=== PATIENT | male | born 2005 | race Caucasian/White ===

== ENCOUNTER 2023-07-29 01:38 | Inpatient (IN) | payer BC, OTHER ==
[2023-07-29] MEDS ORDERED: Acetaminophen 500 MG TAB ONE (02:03)
[2023-07-29] MEDS ORDERED: Morphine 4 MG/ML VIAL ONE (02:03)
[2023-07-29] MEDS ORDERED: Ondansetron PF 4 MG/2 ML Vial ONE (02:04)
[2023-07-29 02:20] LABS: #Basophils 0.1 thou/uL (0.0-0.2); #Monocytes 1.5 thou/uL (0.11-0.59); #Neutrophils 17.1 thou/uL (1.40-6.50); %Basophils 0.2 % (0.0-1.0); %Eosinophils 0.2 % (0.0-10.0); %Lymphocytes 8.2 % (28.0-48.0); %Monocytes 7.3 % (0.0-4.0); %Neutrophils 83.7 % (31.0-61.0); Hematocrit 41.1 % (42.0-52.0); Hemoglobin 14.1 g/dL (14.0-18.0); Mean Corpuscular HGB CONC 34.3 g/dL (32.0-36.0); Mean Corpuscular Hemoglobin 29.1 pg (25.0-35.0); Mean Corpuscular Volume 84.9 fl (78.0-98.0); Mean Platelet Volume 11.1 fL (7.4-10.4); Platelet Count 206 10x3/uL (130-400); RBC Distribution Width 13.4 % (11.5-14.5); Red Blood Cell (RBC) Count 4.84 mill/uL (4.00-5.20); White Blood Cell (WBC) Count 20.4 10x3/uL (4.8-10.8)
[2023-07-29 02:42] LABS: ALT (SGPT) 19 U/L (8-55); AST (SGOT) 31 U/L (5-34); Albumin 4.3 g/dL (3.5-5.0); Alkaline Phosphatase 49 U/L (50-130); Anion Gap 13 mmol/L (10-20); BUN (Urea Nitrogen) 13 mg/dL (8.9-20.6); Bilirubin, Total 0.4 mg/dL (0.2-1.2); CK (CPK) 904 U/L (30-200); Calc. Creatinine Clearance 0 mL/min (70-130); Calcium 9.3 mg/dL (7.8-10.44); Carbon Dioxide 23 mmol/L (22-29); Chloride 103 mmol/L (98-107); Estimated GFR 124; Globulin 2.7 g/dL (2.4-3.5); Glucose 152 mg/dL (70-105); Potassium 3.4 mmol/L (3.5-5.1); Sodium 136 mmol/L (136-145)
[2023-07-29 05:21] LABS: Lactic Acid 0.8 mmol/L (0.5-2.2)
[2023-07-29 07:25] LABS: #Monocytes 1.3 thou/uL (0.11-0.59); #Neutrophils 8.1 thou/uL (1.40-6.50); %Basophils 0.2 % (0.0-1.0); %Eosinophils 0.1 % (0.0-10.0); %Lymphocytes 12.2 % (28.0-48.0); %Neutrophils 75.2 % (31.0-61.0); Hematocrit 38.3 % (42.0-52.0); Hemoglobin 12.9 g/dL (14.0-18.0); Mean Corpuscular HGB CONC 33.7 g/dL (32.0-36.0); Mean Corpuscular Hemoglobin 28.7 pg (25.0-35.0); Mean Corpuscular Volume 85.3 fl (78.0-98.0); Mean Platelet Volume 11.1 fL (7.4-10.4); Platelet Count 190 10x3/uL (130-400); RBC Distribution Width 13.4 % (11.5-14.5); Red Blood Cell (RBC) Count 4.49 mill/uL (4.00-5.20); White Blood Cell (WBC) Count 10.7 10x3/uL (4.8-10.8)
[2023-07-29 07:52] LABS: ALT (SGPT) 19 U/L (8-55); AST (SGOT) 55 U/L (5-34); Albumin 4.2 g/dL (3.5-5.0); Alkaline Phosphatase 48 U/L (50-130); Anion Gap 10 mmol/L (10-20); BUN (Urea Nitrogen) 11 mg/dL (8.9-20.6); Bilirubin, Total 0.6 mg/dL (0.2-1.2); Calc. Creatinine Clearance 0 mL/min (70-130); Calcium 8.9 mg/dL (7.8-10.44); Carbon Dioxide 25 mmol/L (22-29); Chloride 106 mmol/L (98-107); Estimated GFR 126; Globulin 2.3 g/dL (2.4-3.5); Glucose 110 mg/dL (70-105); Potassium 4.3 mmol/L (3.5-5.1); Protein, Total 6.5 g/dL (6.0-8.3); Sodium 137 mmol/L (136-145)
[2023-07-29] MEDS: traMADol HCl 50 MG TAB PO SCH ×3 (07:57→17:42)
[2023-07-29 08:00] VITALS: BMI 22.4
[2023-07-29] MEDS: Sodium Chloride 0.9% 1,000 ML IV SCH ×2 (09:08→16:43)
[2023-07-29] MEDS: Acetaminophen 500 MG TAB PO SCH ×2 (11:35→17:44)
[2023-07-29] MEDS ORDERED: Iopamidol-370 76% 500 ML MDV (1 ML CHARGE) ONE (14:06)
[2023-07-30] MEDS: Sodium Chloride 0.9% 1,000 ML IV SCH ×3 (00:31→16:50)
[2023-07-30] MEDS: traMADol HCl 50 MG TAB PO SCH ×4 (01:51→17:21)
[2023-07-30] MEDS: Acetaminophen 500 MG TAB PO SCH ×4 (01:51→17:21)
[2023-07-30 07:44] LABS: #Eosinphils 0.1 thou/uL (0.0-0.7); #Monocytes 1.1 thou/uL (0.11-0.59); %Basophils 0.1 % (0.0-1.0); %Eosinophils 0.9 % (0.0-10.0); %Lymphocytes 23.1 % (28.0-48.0); %Monocytes 16.7 % (0.0-4.0); %Neutrophils 59.1 % (31.0-61.0); Hematocrit 35.5 % (42.0-52.0); Hemoglobin 11.7 g/dL (14.0-18.0); Mean Corpuscular Hemoglobin 28.7 pg (25.0-35.0); Mean Platelet Volume 11.8 fL (7.4-10.4); Platelet Count 170 10x3/uL (130-400); RBC Distribution Width 13.5 % (11.5-14.5); Red Blood Cell (RBC) Count 4.08 mill/uL (4.00-5.20); White Blood Cell (WBC) Count 6.7 10x3/uL (4.8-10.8)
[2023-07-30 08:06] LABS: Anion Gap 9 mmol/L (10-20); BUN (Urea Nitrogen) 6 mg/dL (8.9-20.6); Calc. Creatinine Clearance 164 mL/min (70-130); Calcium 8.5 mg/dL (7.8-10.44); Carbon Dioxide 25 mmol/L (22-29); Chloride 108 mmol/L (98-107); Estimated GFR 132; Glucose 100 mg/dL (70-105); Potassium 3.9 mmol/L (3.5-5.1); Sodium 138 mmol/L (136-145)
[2023-07-30 08:18] LABS: CK (CPK) 4336 U/L (30-200)
[2023-07-31] MEDS: Sodium Chloride 0.9% 1,000 ML IV SCH ×5 (00:42→23:15)
[2023-07-31] MEDS: Acetaminophen 500 MG TAB PO SCH ×5 (00:44→23:16)
[2023-07-31] MEDS: traMADol HCl 50 MG TAB PO SCH ×5 (00:44→23:15)
[2023-07-31 04:26] LABS: Hematocrit 33.8 % (42.0-52.0); Hemoglobin 11.1 g/dL (14.0-18.0); Platelet Count 160 10x3/uL (130-400)
[2023-07-31 04:53] LABS: Anion Gap 9 mmol/L (10-20); BUN (Urea Nitrogen) 6 mg/dL (8.9-20.6); CK (CPK) 3806 U/L (30-200); Calc. Creatinine Clearance 166 mL/min (70-130); Calcium 8.6 mg/dL (7.8-10.44); Carbon Dioxide 26 mmol/L (22-29); Chloride 108 mmol/L (98-107); Estimated GFR 132; Glucose 96 mg/dL (70-105); Potassium 3.8 mmol/L (3.5-5.1); Sodium 139 mmol/L (136-145)
[2023-07-31] MEDS ORDERED: Sodium Chloride 0.9% 1,000 ML IV SCH (11:00)
[2023-08-01] MEDS: Sodium Chloride 0.9% 1,000 ML IV SCH (02:00)
[2023-08-01 05:24] LABS: Hemoglobin 11.2 g/dL (14.0-18.0); Platelet Count 158 10x3/uL (130-400)
[2023-08-01] MEDS: Acetaminophen 500 MG TAB PO SCH ×2 (05:28→11:44)
[2023-08-01] MEDS: traMADol HCl 50 MG TAB PO SCH ×2 (05:29→11:44)
[2023-08-01 12:41] VITALS: BP 114/65; TEMP 97.7
== END 2023-08-01 13:51 | disposition home or self-care (01) | DRG 965 ==
LOC: ERS 01:38 → ERHOLD 03:49 → SURG A 09:48
PROVIDERS: ADMIT Specialist; ATTEND Specialist
DX: S87.81XA Crushing injury of right lower leg, initial encounter (principal); T79.6XXA Traumatic ischemia of muscle, initial encounter; W20.8XXA Other cause of strike by thrown, projected or falling object, initial encounter
CPT/HCPCS: 36415; 80048; 80053; 82550; 83605; 85014; 85018; 85025; 85049; 93005; 96374; 96375; J2270; J2405; J7050; Q9967